=== PATIENT | male | born 1990 | race Caucasian/White ===

== ENCOUNTER 2017-06-24 20:36 | Emergency (ER) | payer SELFPAY ==
[~2017-06-24] VITALS: Ht 170.2 cm; Wt 31.8 kg
[2017-06-24] MEDS ORDERED: HYDROcodone-ACET 10/325MG TAB PO ONE (22:45)
[2017-06-24 22:57] VITALS: BP 105/70
[2017-06-25] MEDS ORDERED: BACITRACIN TOP OINT 1 UD PKG TOP ONE
== END 2017-06-25 02:24 | disposition home or self-care (01) ==
LOC: EDBD 20:36 → ER 20:42
DX: S01.81XA Laceration without foreign body of other part of head, initial encounter (principal); F17.210 Nicotine dependence, cigarettes, uncomplicated; F12.10 Cannabis abuse, uncomplicated; V29.40XA Motorcycle driver injured in collision with unspecified motor vehicles in traffic accident, initial encounter; Y93.89 Activity, other specified; Y99.8 Other external cause status; Y92.89 Other specified places as the place of occurrence of the external cause
CPT/HCPCS: 12013; 70450; 73590; 73600